=== PATIENT | female | born 1955 | race African-American/Black ===

== ENCOUNTER 2022-06-27 12:10 | Emergency (ER) | payer MEDICARE, OTHER | END 2022-06-27 13:07 | disposition home or self-care (01) | LOC: NAV ERS 12:10 | DX: L76.82 Other postprocedural complications of skin and subcutaneous tissue (principal); L08.89 Other specified local infections of the skin and subcutaneous tissue; E03.9 Hypothyroidism, unspecified; Z87.891 Personal history of nicotine dependence; Z79.899 Other long term (current) drug therapy | CPT/HCPCS: 99283 ==